=== PATIENT | female | born 1945 | race Caucasian/White ===

== ENCOUNTER 2019-08-09 07:59 | Emergency (ER) | payer MEDICARE ==
[~2019-08-09] VITALS: Ht 157.5 cm; Wt 65.0 kg
--- NOTE | 2019-08-09 08:27 | NUR ---
PT BIB [facility] FOR DIZZNESS. PT STATES SOME DIZZINESS YESTERDAY, STATES WORSE THIS AM WHEN WALKING. PT DENIES OTHER SYMPTOMS. PT PLACED ON MONITORS AND EKG COMPLETED. AT BEDSIDE. [facility] AT BEDSIDE FOR ASSESSMENT.
[2019-08-09] MEDS ORDERED: MECLIZINE CHEWABLE 25 MG TAB ONE (08:46)
--- NOTE | 2019-08-09 08:52 | NUR ---
PT RESTING IN BED, NO DISTRESS, REMAINS ON MONITORS. PT MEDICATED PER ORDERS. AWAITNG ALL RESULTS. REMAINS AT BEDSIDE. CONT TO MONITOR.
[2019-08-09] MEDS ORDERED: SODIUM CHLORIDE 0.9% 1,000ML IVBOLUS ONE (09:00)
[2019-08-09] MEDS ORDERED: MECLIZINE CHEWABLE 25 MG TAB PO ONE (09:00)
[2019-08-09] MEDS ORDERED: SODIUM CHLORIDE FLUSH 10ML SYR IVF ONE (09:00)
[2019-08-09 09:06] LABS: ALBUMIN 3.8 g/dL (3.4-5.0); ANION GAP 7 mmol/L (5-15); CALCIUM 9.5 mg/dL (8.5-10.1); CHLORIDE 105 mmol/L (98-107); CREATININE 1.07 mg/dL (0.55-1.02)
[2019-08-09 09:08] LABS: BASOPHILS # (AUTO) 0.04 x10^3/uL (0-0.1); BASOPHILS % (AUTO) 1 % (0-1); EOSINOPHILS % (AUTO) 3 % (1-7); LYMPHOCYTES # (AUTO) 1.62 x10^3/uL (1-3.4); LYMPHOCYTES % (AUTO) 23 % (22-44); MD NO; MEAN CORPUSCULAR HEMOGLOBIN 30.3 pg (27.0-34.8); MEAN CORPUSCULAR HGB CONC 33.5 g/dL (32.4-35.8); MEAN CORPUSCULAR VOLUME 90.4 fL (80-100); MEAN PLATELET VOLUME 8.5 fL (7.4-10.4); MONOCYTES # (AUTO) 0.54 x10^3/uL (0.2-0.8); MONOCYTES % (AUTO) 8 % (2-9); NEUTROPHILS # (AUTO) 4.53 x10^3/uL (1.8-6.8); NEUTROPHILS % (AUTO) 65 % (42-75); PLATELET COUNT 313 x10^3/uL (130-400); RED BLOOD COUNT 4.23 x10^6/uL (3.82-5.3); RED CELL DISTRIBUTION WIDTH 14.1 % (9.6-15.2)
[2019-08-09 09:10] LABS: TROPONIN I < 0.015 ng/mL (0.000-0.045)
--- NOTE | 2019-08-09 09:52 | NUR ---
DR MAGDALENO AT BEDSIDE FOR REASSESSMENT.
--- NOTE | 2019-08-09 10:29 | NUR ---
PT GIVEN D/C INSTRUCTIONS, VERBALIZED UNDERSTANDING. PT HAS ALL OWN BELONGINGS UPON D/C, STEADY GAIT UPON D/C.
[2019-08-09 10:30] VITALS: BP 145/89
== END 2019-08-09 10:32 | disposition home or self-care (01) ==
LOC: ED 09:23
DX: R42 Dizziness and giddiness (principal); R94.31 Abnormal electrocardiogram [ECG] [EKG]; I10 Essential (primary) hypertension; E78.00 Pure hypercholesterolemia, unspecified
CPT/HCPCS: 36415; 80048; 82040; 84484; 85025; 93005; 96360; 99284; J7030